=== PATIENT | male | born 1995 | race American Indian/Alaskan Native ===

== ENCOUNTER 2020-12-14 10:07 | Emergency (ER) | payer BC ==
[2020-12-14] MEDS ORDERED: ONDANSETRON 4 MG/2 ML INJ IV ONE (10:19)
--- NOTE | 2020-12-14 10:23 | Emergency Department Report ---
ED General Adult HPI - General Chief complaint: Dizziness Stated complaint: VOMITING Time Seen by Provider: 12/14/20 10:13 Source: patient, EMS Mode of arrival: Stretcher Limitations: No Limitations - History of Present Illness Initial comments: Patient is 25 years old male with no significant past medical history. Patient brought to the emergency room via EMS from a local [facility] training area for evaluation of nausea and vomiting and possible dehydration. Patient stated that he was doing PT for approximately 1-1/2-hour when he all of a sudden started having cramping and nausea and vomiting. Patient denying passing out. Patient also denied any loss of consciousness, fever, chills or diarrhea. - Related Data Home Medications Medication Instructions Recorded Confirmed Last Taken No Known Home Medications [No 12/14/20 12/14/20 Unknown Reported Home Medications] Allergies Allergy/AdvReac Type Severity Reaction Status Date / Time No Known Allergies Allergy Unverified 12/14/20 10:16 ED Review of Systems ROS: Stated complaint: VOMITING Other details as noted in HPI Comment: All other systems reviewed and negative Constitutional: denies: chills, fever Respiratory: denies: cough, shortness of breath, SOB with exertion Cardiovascular: denies: chest pain, palpitations Gastrointestinal: nausea, vomiting. denies: abdominal pain, diarrhea, constipation, hematemesis Musculoskeletal: denies: back pain Neurological: denies: headache, weakness, numbness, paresthesias, confusion, abnormal gait ED Past Medical Hx - Past Medical History Previous Medical History?: No - Surgical History Past Surgical History?: No - Social History Smoking Status: Never Smoker Substance Use Type: Alcohol - Medications Home Medications: Home Medications Medication Instructions Recorded Confirmed Last Taken Type No Known Home Medications [No 12/14/20 12/14/20 Unknown History Reported Home Medications] ED Physical Exam - General Limitations: No Limitations General appearance: alert, in no apparent distress - Head Head exam: Present: atraumatic, normocephalic, normal inspection - Eye Eye exam: Present: normal appearance - ENT ENT exam: Present: mucous membranes dry - Neck Neck exam: Present: normal inspection, full ROM. Absent: tenderness, meningismus - Respiratory Respiratory exam: Present: normal lung sounds bilaterally - Cardiovascular Cardiovascular Exam: Present: regular rate, normal rhythm, normal heart sounds - GI/Abdominal GI/Abdominal exam: Present: soft, normal bowel sounds. Absent: distended, tenderness, guarding, rebound, rigid, organomegaly, mass, bruit, pulsatile mass, hernia - Extremities Exam Extremities exam: Present: normal inspection, full ROM, normal capillary refill. Absent: tenderness - Back Exam Back exam: Present: normal inspection, full ROM. Absent: CVA tenderness (R), CVA tenderness (L) - Neurological Exam Neurological exam: Present: alert, oriented X3, CN II-XII intact, normal gait, reflexes normal. Absent: motor sensory deficit - Psychiatric Psychiatric exam: Present: normal mood - Skin Skin exam: Present: warm, intact, normal color ED Course Vital Signs 12/14/20 12/14/20 10:07 11:18 Temperature 98.6 F Pulse Rate 79 74 Respiratory 18 19 Rate Blood Pressure 111/69 Blood Pressure 117/89 [Right] O2 Sat by Pulse 99 99 Oximetry ED Medical Decision Making - Lab Data Result diagrams: 12/14/20 10:28 12/14/20 10:28 - Medical Decision Making Patient is 25 years old male with no significant past medical history. Patient brought to the emergency room via EMS from a local [facility] training area for evaluation of nausea and vomiting and possible dehydration. Patient stated that he was doing PT for approximately 1-1/2-hour when he all of a sudden started having cramping and nausea and vomiting. Patient denying passing out. Patient also denied any loss of consciousness, fever, chills or diarrhea. Labs reviewed and is unremarkable except for slightly elevated CK. Kidney function is normal. Patient received normal saline and Zofran. Patient stated that he is feeling much better. Patient advised to follow-up with his primary doctor in the next 2 to 3 days and to return to the ER if he develop any new symptoms. Critical care attestation.: If time is entered above; I have spent that time in minutes in the direct care of this critically ill patient, excluding procedure time. ED Disposition Clinical Impression: Acute nausea with nonbilious vomiting, Acute dehydration Disposition: - TO HOME OR SELFCARE Is pt being admited?: No Condition: Stable Instructions: Nausea, Adult, Dehydration, Adult Referrals: PRIMARY CARE, [Primary Care Provider] - 3-5 Days
[2020-12-14 10:59] LABS: Basophils % (Auto) 0.3 % (0.0-1.8); Eosinophils % (Auto) 0.3 % (0.0-4.3); Hemoglobin 15.6 gm/dl (11.8-15.2); Lymphocytes # (Auto) 1.4 K/mm3 (1.2-5.4); Lymphocytes % (Auto) 16.6 % (13.4-35.0); Mean Corpuscular HGB Conc 35 % (32-34); Mean Corpuscular Volume 86 fl (84-94); Monocytes # (Auto) 0.8 K/mm3 (0.0-0.8); Monocytes % (Auto) 10.4 % (0.0-7.3); Platelet Count 203 K/mm3 (140-440); Red Blood Count 5.21 M/mm3 (3.65-5.03); Red Cell Distribution Width 12.9 % (13.2-15.2)
[2020-12-14 11:14] LABS: Alanine Aminotransferase 23 units/L (7-56); Albumin 4.2 g/dL (3.9-5); BUN/Creatinine Ratio 7; Bilirubin,Direct 0.2 mg/dL (0-0.2); Blood Urea Nitrogen 6 mg/dL (9-20); Calcium 8.9 mg/dL (8.4-10.2); Hemolysis Index 11
[2020-12-14 11:20] VITALS: BP 117/89
[2020-12-14 12:15] LABS: Bacteria,Urine 1+ /HPF (Negative); Bilirubin,Urine NEG (Negative); Blood,Urine NEG (Negative); Color,Urine Yellow (Yellow); Mucus,Urine FEW /HPF; Protein,Urine <15 mg/dL mg/dL (Negative); Urobilinogen,Urine < 2.0 mg/dL (<2.0)
== END 2020-12-14 13:29 | disposition home or self-care (01) ==
LOC: ED 10:07
DX: E86.0 Dehydration (principal); R11.2 Nausea with vomiting, unspecified; Z72.89 Other problems related to lifestyle; Z79.899 Other long term (current) drug therapy
CPT/HCPCS: 36415; 80048; 80076; 81001; 82550; 83690; 85025; 96374; 99284; J2405